=== PATIENT | female | born 2000 | race Caucasian/White ===

== ENCOUNTER 2022-10-27 21:16 | Emergency (ER) | payer OTHER ==
[2022-10-27] MEDS ORDERED: Lorazepam 1 MG TAB ONE (22:45)
[2022-10-27] MEDS ORDERED: OXcarbazepine 300 MG TAB PO SCH (23:00)
== END 2022-10-27 23:20 | disposition home or self-care (01) ==
LOC: CSHERS 21:16
DX: F41.9 Anxiety disorder, unspecified (principal); Z76.0 Encounter for issue of repeat prescription
CPT/HCPCS: 99281